=== PATIENT | female | born 1995 | race Caucasian/White ===

== ENCOUNTER 2021-10-06 16:58 | Emergency (ER) | payer OTHER ==
[~2021-10-06] VITALS: Ht 177.8 cm; Wt 63.6 kg
[2021-10-06 17:38] VITALS: TEMP 97.2
[2021-10-06] MEDS ORDERED: FLEXERIL 1010 MG/TAB PO (18:42)
[2021-10-06 18:57] VITALS: BP 128/78; PULSE 80
== END 2021-10-06 18:57 | disposition home or self-care (01) ==
LOC: COL.ER 16:58
DX: M62.838 Other muscle spasm (principal); V49.50XA Passenger injured in collision with unspecified motor vehicles in traffic accident, initial encounter; Y92.410 Unspecified street and highway as the place of occurrence of the external cause